=== PATIENT | female | born 1975 | race Caucasian/White ===

== ENCOUNTER 2016-12-15 08:00 | Emergency (ER) | payer OTHER ==
--- NOTE | 2016-12-21 15:44 | ER ---
ADMIT: 12/15/2016 RM/LOC: ER [facility] MR#: [id number] [address] JULIO LOGAN [facility] [place] [address] Emergency Room Report SEX: F AGE: 41 : 1975 DATE: 12/15/2016 HISTORY OF PRESENT ILLNESS: The patient is a 41-year-old with multiple issues, who presents to the emergency room saying she is lightheaded, has some palpitations, felt like she had hot and cold chills, and she states that this has been going on more often than not. She has some neck and back pain, but this is chronic. Today, she states that she is here because she could not explain why she could not go to sleep last night and she is very anxious. REVIEW OF SYSTEMS: Otherwise negative. PAST MEDICAL HISTORY: Diabetes type 2, hypertension, with tachycardia. PAST SURGICAL HISTORY: She had a knee scope and cholecystectomy. MEDICATIONS: See T-sheet. ALLERGIES: ALLERGIC TO CECLOR AND PENICILLIN. FAMILY HISTORY: She has a family history of clots in the heart and heart attacks in elderly relatives. PHYSICAL EXAMINATION: VITAL SIGNS: Blood pressure 206/91. She says when she comes to the hospital, her blood pressure is always elbert rockets. She has what be called as the white coat syndrome. In the ER, her blood pressure is 164/96 with a heart rate of 112, respirations 22, temperature 98.9. GENERAL: Moderately anxious. NECK: Supple. RESPIRATIONS: Within normal limits. CVS: Tachycardic. ABDOMEN: Nontender. This is an obese patient. SKIN: Good color. She does have some patches in her right leg, red. NEURO: Normal orientation. Mood and affect is anxious. Her mother is at bedside. LABORATORY AND X-RAY DATA: X-ray, no focal infiltrate. CBC within normal limits. Chemistry; glucose is 204, TSH is normal at 1.630. UA normal. Troponin less than 0.015. EKG, tachycardic, 101. CLINICAL IMPRESSION: 1. Palpitations. 2. Panic attack. ADMIT: 12/15/2016 RM/LOC: ER [facility] MR#: [id number] [address] JULIO LOGAN [facility] [address] [place] [address] Emergency Room Report SEX: F AGE: 41 : 1975 3. Hypertension. 4. Hyperglycemia. The patient was put on a Holter monitor and given Ativan in the ER to kind of help her out, that is when the blood pressure did go down some from 206/91 to 164/96. She feels a little better, but she would like to get this under control. She is advised to follow up with Dr. Tanner Gonsalez, take her Xanax at 6:00 p.m. today and take it regularly. I did spend quite a few minutes with her explaining the situation and prognosis and treatment. I talked about getting her started on Cymbalta as she does have chronic back and neck pain, this could be pretty helpful with the anxiety and panic attack as well. She is going to follow up with Dr. Gonsalez for that purpose. Dr. Gonzalez to read the Holter monitor. MARK Oakley / Bandar Turpin MD / samy JOB #: [id number] CC: Bandar Turpin MD, Attending Physician Tanner Gonsalez MD, Family Physician
== END 2016-12-15 13:05 | disposition home or self-care (01) ==
LOC: ER 08:00
DX: F41.0 Panic disorder [episodic paroxysmal anxiety] (principal); I10 Essential (primary) hypertension; E11.65 Type 2 diabetes mellitus with hyperglycemia; R00.2 Palpitations; Z90.49 Acquired absence of other specified parts of digestive tract; Z88.0 Allergy status to penicillin; Z88.8 Allergy status to other drugs, medicaments and biological substances; Z79.84 Long term (current) use of oral hypoglycemic drugs; Z79.899 Other long term (current) drug therapy; Z98.890 Other specified postprocedural states